=== PATIENT | male | born 1955 | race Caucasian/White ===

== ENCOUNTER 2021-02-23 16:33 | Emergency (ER) | payer MEDICARE, MEDICAID ==
[~2021-02-23] VITALS: Ht 177.8 cm; Wt 54.5 kg
[2021-02-23 16:38] VITALS: BP 125/73; Ht 177.8 cm; Wt 54.5 kg
== END 2021-02-23 18:00 | disposition left against medical advice (07) ==
LOC: D.ER 16:33
DX: M25.561 Pain in right knee (principal); Z53.29 Procedure and treatment not carried out because of patient's decision for other reasons